=== PATIENT | male | born 1970 | race Native Hawaiian/Other Pacific Islander ===

== ENCOUNTER → 2020-05-01 | Outpatient (CLI) | payer MEDICARE, OTHER ==
--- NOTE | 2020-05-01 15:06 | CT ---
EXAM DESCRIPTION: Abdomen/Pelvis w/Contrast: Computed Tomography. CLINICAL HISTORY: 49 years Male postoperative pain COMPARISON: CT scan of abdomen and pelvis with IV contrast January 12 TECHNIQUE: Spiral-axial scans at 5 x 5 mm intervals through the abdomen and pelvis, after nonionic IV contrast without oral contrast. Coronal and sagittal 2.0 mm reconstructions. No delayed scans. No adverse reactions. Total Exam DLP: 1523 mGy-cm. This exam was performed according to our departmental dose-optimization program which includes automated exposure control, adjustment of the mA and/or kV according to patient size and/or use of iterative reconstruction technique; to reduce radiation dose to as low as reasonably achievable (ALARA). FINDINGS: Lung bases and pleura: Negative. Liver, Stomach, Spleen, Adrenal Glands: Heterogeneous low-density of the liver. Enlarged long axis right lobe 21 cm. No focal lesions. Stomach and solid organs negative. Pancreas, Gallbladder, Ducts: Cholecystectomy since the prior study. Surgical clips gallbladder fossa with no fluid and no fatty stranding Duct and pancreas negative. Small peripancreatic lymph nodes stable. Kidneys and Ureters: Stable 3.2 cm cyst upper pole left kidney, including no change in calcification posterior wall. Stable juxtacortical density posterior mid right kidney, with subcentimeter cyst. Otherwise negative. Mesentery: No stranding or fascial thickening. No free air or free fluid. Aorta: Unremarkable. Small Bowel: Negative. Terminal Ileum/Cecum: Normal caliber including the appendix with no inflammatory changes. Colon: No distention. Intermittent minimal fecal matter. Redundant sigmoid colon. No complications. Pelvic Organs: Unremarkable. Spine and Bony Pelvis: Minimal thoracolumbar dextroscoliosis. Hypertrophic changes bilateral superior lateral acetabula and underlying and joint space narrowing. Abdominal Wall/Back Soft Tissues: New, post-laparoscopic changes abutting the umbilicus and to the right of midline overlying the left hepatic lobe. No complications. Small fatty inguinal hernias not complicated. Small inguinal nodes. IMPRESSION: 1. Postcholecystectomy since the prior study with no CT evidence of complications. Electronically signed by: Hemal Ayala MD 05/01/2020 3:04 PM CDT
== END ==
LOC: LAB.O 10:03
PROVIDERS: ATTEND Surgery
DX: G89.18 Other acute postprocedural pain (principal); Z98.890 Other specified postprocedural states; Z90.49 Acquired absence of other specified parts of digestive tract